=== PATIENT | male | born 1950 | race Caucasian/White ===

== ENCOUNTER 2018-06-27 19:55 | Inpatient (IN) | payer BC, MEDICARE ==
[~2018-06-27] VITALS: Ht 167.6 cm; Wt 68.9 kg
[2018-06-27 20:38] LABS: BASOPHILS # (AUTO) 0.09 x10^3/uL (0-0.1); BASOPHILS % (AUTO) 1 % (0-1); EOSINOPHILS # (AUTO) 0.09 x10^3/uL (0-0.4); EOSINOPHILS % (AUTO) 1 % (1-7); LYMPHOCYTES # (AUTO) 1.93 x10^3/uL (1-3.4); LYMPHOCYTES % (AUTO) 23 % (22-44); MD NO; MEAN CORPUSCULAR HEMOGLOBIN 31.1 pg (27.5-34.5); MEAN CORPUSCULAR HGB CONC 33.8 g/dL (33.2-36.2); MEAN CORPUSCULAR VOLUME 91.9 fL (81-97); MEAN PLATELET VOLUME 8.8 fL (7.4-10.4); MONOCYTES # (AUTO) 0.59 x10^3/uL (0.2-0.8); MONOCYTES % (AUTO) 7 % (2-9); NEUTROPHILS # (AUTO) 5.87 x10^3/uL (1.8-6.8); NEUTROPHILS % (AUTO) 69 % (42-75); PLATELET COUNT 242 x10^3/uL (130-400); RED BLOOD COUNT 4.66 x10^6/uL (4.38-5.82); RED CELL DISTRIBUTION WIDTH 13.9 % (9.4-14.8)
[2018-06-27 20:46] LABS: INTERNATIONAL NORMALIZED RATIO 1.05 (0.93-1.1); PROTHROMBIN TIME 10.9 Seconds (9.6-11.5)
[2018-06-27 20:47] LABS: ALBUMIN 3.6 g/dL (3.4-5.0); ANION GAP 5 mmol/L (5-15); CALCIUM 8.9 mg/dL (8.5-10.1); CHLORIDE 109 mmol/L (98-107); CREATININE 1.49 mg/dL (0.7-1.3)
[2018-06-27] MEDS ORDERED: ESCI10TA PO (21:57)
[2018-06-27] MEDS ORDERED: PRAS10TA4 PO (21:57)
[2018-06-27] MEDS ORDERED: BISO1TAB51 PO (21:57)
[2018-06-27] MEDS ORDERED: SIMV20TA3 PO (21:57)
[2018-06-27] MEDS ORDERED: APIX5TAB PO (21:57)
[2018-06-27] MEDS ORDERED: OMEP-110 PO (21:57)
[2018-06-27] MEDS ORDERED: BISACODYL 10 MG SUPP PR PRN (22:30)
[2018-06-27] MEDS ORDERED: ONDANSETRON 2MG/ML, 2ML IVPush PRN (22:30)
[2018-06-27] MEDS ORDERED: KETOROLAC 30 MG/1 ML IV PRN (22:30)
[2018-06-27] MEDS ORDERED: POLYETHYLENE GLYCOL 17 GM PACKET PO PRN (22:30)
[2018-06-27] MEDS ORDERED: DOCUSATE 100 MG CAPSULE PO PRN (22:30)
[2018-06-27] MEDS ORDERED: GABAPENTIN 300 MG CAPSULE PO PRN (22:30)
[2018-06-27] MEDS ORDERED: ONDANSETRON ODT 4 MG PO PRN (22:30)
[2018-06-27] MEDS ORDERED: PROMETHAZINE 25 MG/ML, 1ML IM PRN (22:30)
[2018-06-27 22:45] VITALS: BP 95/63
[2018-06-27 22:50] LABS: HEMOGLOBIN A1C 5.7 % (4.2-6.3)
[2018-06-27 22:52] LABS: FREE T4 (FREE THYROXINE) 1.1 ng/dL (0.76-1.46); THYROID STIMULATING HORMONE 1.79 mIU/L (0.358-3.740)
[2018-06-27] MEDS: SODIUM CHLORIDE 0.9% 1,000 ML IV SCH (23:35)
[2018-06-28 00:54] VITALS: BP 87/61
[2018-06-28 00:55] VITALS: BP 121/74
[2018-06-28 00:56] VITALS: BP 119/72
[2018-06-28 01:17] LABS: MICROSCOPIC AUTO
[2018-06-28 01:20] LABS: CULTURE INDICATED? NO
[2018-06-28 04:12] LABS: BASOPHILS # (AUTO) 0.04 x10^3/uL (0-0.1); BASOPHILS % (AUTO) 1 % (0-1); EOSINOPHILS # (AUTO) 0.09 x10^3/uL (0-0.4); EOSINOPHILS % (AUTO) 1 % (1-7); LYMPHOCYTES # (AUTO) 1.62 x10^3/uL (1-3.4); LYMPHOCYTES % (AUTO) 22 % (22-44); MD NO; MEAN CORPUSCULAR HEMOGLOBIN 30.6 pg (27.5-34.5); MEAN CORPUSCULAR HGB CONC 33.1 g/dL (33.2-36.2); MEAN CORPUSCULAR VOLUME 92.2 fL (81-97); MEAN PLATELET VOLUME 9.2 fL (7.4-10.4); MONOCYTES # (AUTO) 0.63 x10^3/uL (0.2-0.8); MONOCYTES % (AUTO) 9 % (2-9); NEUTROPHILS # (AUTO) 5.03 x10^3/uL (1.8-6.8); NEUTROPHILS % (AUTO) 68 % (42-75); PLATELET COUNT 201 x10^3/uL (130-400); RED BLOOD COUNT 4.23 x10^6/uL (4.38-5.82); RED CELL DISTRIBUTION WIDTH 14.3 % (9.4-14.8)
[2018-06-28 04:25] LABS: ALBUMIN 3.4 g/dL (3.4-5.0); ANION GAP 8 mmol/L (5-15); CALCIUM 8.4 mg/dL (8.5-10.1); CHLORIDE 109 mmol/L (98-107)
[2018-06-28 04:28] LABS: ALANINE AMINOTRANSFERASE 27 U/L (12-78); ALKALINE PHOSPHATASE 82 U/L (45-117); BILIRUBIN,TOTAL 0.6 mg/dL (0.2-1.0); CHOL/HDL RATIO 2.5; CHOLESTEROL, TOTAL 103 mg/dL (140-239); HDL CHOL % 41 % (26-37); HDL CHOLESTEROL (DIRECT) 42 mg/dL (40-60); LDL CHOLESTEROL,CALCULATED 40 mg/dL (54-169); TOTAL PROTEIN 6.5 g/dL (6.4-8.2); TRIGLYCERIDES 107 mg/dL (50-200); VLDL CHOLESTEROL 21 mg/dL (0-25)
[2018-06-28] MEDS: PRASUGREL 10 MG TABLET PO SCH (08:54)
[2018-06-28] MEDS: CITALOPRAM 20 MG TABLET PO SCH (08:54)
[2018-06-28] MEDS: SODIUM CHLORIDE 0.9% 1,000 ML IV SCH ×2 (08:54→14:17)
[2018-06-28] MEDS: OMEPRAZOLE 20 MG CAPSULE.DR PO SCH (08:55)
[2018-06-28] MEDS: APIXABAN 5 MG TABLET PO SCH ×2 (08:55→22:50)
[2018-06-28 09:58] VITALS: BP_SYST 77; BP_SYST 89; BP_SYST 96; BP_DIAS 52; BP_DIAS 61; BP_DIAS 62
[2018-06-28 16:00] VITALS: BP 106/65
[2018-06-28] MEDS: MIDODRINE 5 MG TABLET PO SCH ×2 (16:12→22:50)
[2018-06-28] MEDS: ACETAMINOPHEN 325 MG TABLET PO PRN (16:14)
[2018-06-28 21:55] VITALS: BP_SYST 107; BP_SYST 94; BP_DIAS 61; BP_DIAS 68
[2018-06-28] MEDS: SIMVASTATIN 20 MG TABLET PO SCH (22:50)
[2018-06-29 01:39] VITALS: BP 115/72
[2018-06-29] MEDS: SODIUM CHLORIDE 0.9% 1,000 ML IV SCH ×2 (04:52→17:27)
[2018-06-29 05:10] LABS: ALANINE AMINOTRANSFERASE 23 U/L (12-78); ANION GAP 6 mmol/L (5-15); CALCIUM 8.2 mg/dL (8.5-10.1); CHLORIDE 114 mmol/L (98-107); CREATININE 1.26 mg/dL (0.7-1.3)
[2018-06-29 05:12] LABS: ALKALINE PHOSPHATASE 81 U/L (45-117); BILIRUBIN,TOTAL 0.5 mg/dL (0.2-1.0); TOTAL PROTEIN 6.3 g/dL (6.4-8.2)
[2018-06-29] MEDS: PRASUGREL 10 MG TABLET PO SCH (08:10)
[2018-06-29] MEDS: APIXABAN 5 MG TABLET PO SCH ×2 (08:10→21:14)
[2018-06-29] MEDS: MIDODRINE 5 MG TABLET PO SCH ×3 (08:10→21:14)
[2018-06-29] MEDS: OMEPRAZOLE 20 MG CAPSULE.DR PO SCH (08:10)
[2018-06-29] MEDS: CITALOPRAM 20 MG TABLET PO SCH (08:10)
[2018-06-29] MEDS: ACETAMINOPHEN 325 MG TABLET PO PRN (08:11)
[2018-06-29 10:02] VITALS: BP 115/69
[2018-06-29 16:45] VITALS: BP 119/75
[2018-06-29 19:17] VITALS: BP 106/62
[2018-06-29] MEDS: SIMVASTATIN 20 MG TABLET PO SCH (21:14)
[2018-06-30 02:23] VITALS: BP 114/73
[2018-06-30] MEDS: SODIUM CHLORIDE 0.9% 1,000 ML IV SCH (06:35)
[2018-06-30] MEDS: OMEPRAZOLE 20 MG CAPSULE.DR PO SCH (08:42)
[2018-06-30] MEDS: PRASUGREL 10 MG TABLET PO SCH (08:42)
[2018-06-30] MEDS: APIXABAN 5 MG TABLET PO SCH (08:42)
[2018-06-30] MEDS: CITALOPRAM 20 MG TABLET PO SCH (08:42)
[2018-06-30] MEDS: MIDODRINE 5 MG TABLET PO SCH ×2 (08:42→15:57)
[2018-06-30 10:30] VITALS: BP 113/73
[2018-06-30] MEDS ORDERED: MIDO5TAB PO (14:20)
[2018-06-30] MEDS ORDERED: ACET325T14 PO (14:20)
== END 2018-06-30 16:46 | disposition home or self-care (01) | DRG 683 ==
LOC: ED 21:40 → 3NW 21:59
PROVIDERS: ADMIT Internal Medicine; ATTEND Internal Medicine
DX: N17.0 Acute kidney failure with tubular necrosis (principal); D68.69 Other thrombophilia; I95.1 Orthostatic hypotension; S01.81XA Laceration without foreign body of other part of head, initial encounter; I25.10 Atherosclerotic heart disease of native coronary artery without angina pectoris; I10 Essential (primary) hypertension; I48.0 Paroxysmal atrial fibrillation; Z88.0 Allergy status to penicillin; W18.39XA Other fall on same level, initial encounter; Y93.89 Activity, other specified; Y92.89 Other specified places as the place of occurrence of the external cause; Y99.8 Other external cause status; S01.411A Laceration without foreign body of right cheek and temporomandibular area, initial encounter; E78.00 Pure hypercholesterolemia, unspecified; E78.5 Hyperlipidemia, unspecified; F32.9 Major depressive disorder, single episode, unspecified; I25.2 Old myocardial infarction; Z87.820 Personal history of traumatic brain injury; Z95.5 Presence of coronary angioplasty implant and graft
CPT/HCPCS: 36415; 70450; 80048; 80053; 80061; 81001; 82040; 83036; 83735; 84439; 84443; 85025; 85610; 85730; 93005; 93306; 99285; G0378; 92523-GN; J7030